=== PATIENT | female | born 1980 | race Caucasian/White ===

== ENCOUNTER 2016-09-25 16:40 | Emergency (ER) | payer OTHER ==
[~2016-09-25] VITALS: Ht 167.6 cm; Wt 142.9 kg
[2016-09-25] MEDS ORDERED: ULTRAM 50MG TAB50 MG PO (18:17)
[2016-09-25 18:23] VITALS: BP 174/98
== END 2016-09-25 18:24 | disposition home or self-care (01) ==
LOC: ER 16:40
DX: M79.641 Pain in right hand (principal); F17.210 Nicotine dependence, cigarettes, uncomplicated; F10.99 Alcohol use, unspecified with unspecified alcohol-induced disorder; Z88.0 Allergy status to penicillin; Z88.6 Allergy status to analgesic agent

== ENCOUNTER 2017-06-23 16:21 | Emergency (ER) | payer OTHER ==
[~2017-06-23] VITALS: Ht 167.6 cm; Wt 145.2 kg
[~2017-06-23 16:21] MED LIST: ULTRAM 50MG TAB50 MG PO
[2017-06-23 16:51] LABS: ABSOLUTE NEUTROPHILS 11.2 thou/uL (1.4-8.2); EOSINOPHILS 0.4 % (0.0-3.0); HEMATOCRIT 36.7 % (37.0-47.0); LYMPHOCYTES 3.4 % (24.0-44.0); MCH 25.3 pg (26.0-34.0); MCHC 32.6 g/dL (28.0-37.0); MCV 77.7 fL (80.0-100.0); MONOCYTES 2.1 % (1.0-8.0); PLATELET COUNT 257 thou/uL (150-400); POLYS 94.1 % (36.0-66.0); RBC 4.72 mil/uL (4.20-5.00); RDW 14.8 % (10.5-14.5); WBC 11.9 thou/uL (4.0-11.0)
[2017-06-23 16:52] LABS: URINE BILIRUBIN NEGATIVE (Negative); URINE BLOOD NEGATIVE (Negative); URINE CLARITY CLEAR; URINE COLOR YELLOW; URINE GLUCOSE-RANDOM* NEGATIVE (Negative); URINE KETONES NEGATIVE (Negative); URINE LEUKOCYTES-REFLEX NEGATIVE (Negative); URINE NITRITE-REFLEX NEGATIVE (Negative); URINE PROTEIN (DIPSTICK) NEGATIVE (Negative); URINE UROBILINOGEN 0.2 E.U./dl (0.2-1.0)
[2017-06-23 16:58] LABS: CALCIUM 8.7 mg/dL (8.5-10.1); CREATININE 0.9 mg/dL (0.6-1.0); POTASSIUM 3.6 mmol/L (3.5-5.1)
[2017-06-23 17:04] LABS: ALBUMIN 3.5 g/dL (3.4-5.0); TOTAL BILIRUBIN 1.1 mg/dL (<0.1-1.0)
[2017-06-23] MEDS ORDERED: ZOFRAN ODT4 M1 PO (18:24)
[2017-06-23] MEDS ORDERED: LOPERAMIDE 2 MG2 M1 PO (18:25)
[2017-06-23 18:37] VITALS: BP 141/86
== END 2017-06-23 18:39 | disposition home or self-care (01) ==
LOC: ER 16:21
PROVIDERS: Physician Assistant
DX: I10 Essential (primary) hypertension (principal); R11.2 Nausea with vomiting, unspecified; R19.7 Diarrhea, unspecified; Z88.0 Allergy status to penicillin; Z88.8 Allergy status to other drugs, medicaments and biological substances; F17.210 Nicotine dependence, cigarettes, uncomplicated

== ENCOUNTER 2020-07-28 07:04 | Emergency (ER) | payer OTHER ==
[~2020-07-28] VITALS: Ht 167.6 cm; Wt 142.9 kg
[~2020-07-28 07:04] MED LIST changes: +LOPERAMIDE 2 MG2 M1 PO; +ZOFRAN ODT4 M1 PO
[2020-07-28] MEDS ORDERED: NORCO5 PO (07:54)
[2020-07-28 08:25] VITALS: BP 166/109
== END 2020-07-28 08:26 | disposition home or self-care (01) ==
LOC: ER 07:04
DX: S93.491A Sprain of other ligament of right ankle, initial encounter (principal); S83.8X1A Sprain of other specified parts of right knee, initial encounter; I10 Essential (primary) hypertension; F17.210 Nicotine dependence, cigarettes, uncomplicated; Z88.0 Allergy status to penicillin; Z88.6 Allergy status to analgesic agent; X50.1XXA Overexertion from prolonged static or awkward postures, initial encounter; Y93.89 Activity, other specified; Y92.89 Other specified places as the place of occurrence of the external cause; Y99.9 Unspecified external cause status